=== PATIENT | male | born 1985 | race Hispanic/Latino ===

== ENCOUNTER 2019-04-28 09:52 | Emergency (ER) | payer BC ==
[~2019-04-28] VITALS: Ht 182.9 cm; Wt 102.1 kg
[2019-04-28] MEDS ORDERED: ONDANSETRON HCL 4 MG/2 ML VIAL ONE ×3 (14:44→18:43)
[2019-04-28] MEDS ORDERED: BENZOCAINE 20% 57 GM SPRAY TP SCH (17:30)
[2019-04-28] MEDS ORDERED: MIDAZOLAM HCL 1 MG/ML 2ML VIAL ONE (18:29)
[2019-04-28] MEDS ORDERED: PROPOFOL 10 MG/ML 20ML VIAL IV ONE (18:29)
[2019-04-28] MEDS ORDERED: LIDOCAINE PF 2% 5ML ABBOJECT ONE (18:29)
[2019-04-28] MEDS ORDERED: FENTANYL CITRATE PF 50 MCG/1 ML 2ML VIAL ONE ×2 (18:29→18:50)
[2019-04-28] MEDS ORDERED: GLUCAGON 1MG KIT 1 MG ML ONE (19:04)
[2019-04-28 19:40] VITALS: BP 113/44
[2019-04-28 19:45] VITALS: BP 111/46
[2019-04-28 19:50] VITALS: BP 101/45
[2019-04-28 20:08] VITALS: BP 104/52
== END 2019-04-28 20:46 | disposition home or self-care (01) ==
LOC: EDH 09:52
DX: T18.128A Food in esophagus causing other injury, initial encounter (principal); K22.2 Esophageal obstruction; K21.9 Gastro-esophageal reflux disease without esophagitis; K21.0 Gastro-esophageal reflux disease with esophagitis; K29.00 Acute gastritis without bleeding; K31.7 Polyp of stomach and duodenum; X58.XXXA Exposure to other specified factors, initial encounter; Y93.89 Activity, other specified; Y92.89 Other specified places as the place of occurrence of the external cause; Y99.8 Other external cause status
CPT/HCPCS: 43247; 43251; 88305; 96374; 96375; 96376; 99284; J1610; J2001; J2250; J2405 ×3; J2704; J3010 ×2